=== PATIENT | female | born 1965 | race Caucasian/White ===

== ENCOUNTER 2017-04-17 18:38 | Inpatient (IN) | payer OTHER, MEDICARE ==
[~2017-04-17] VITALS: Ht 162.6 cm; Wt 81.0 kg
[~2017-04-17 18:38] MED LIST: [UNRECOGNIZED DRUG - REMARK]
[2017-04-17 18:43] VITALS: BP 148/89; PULSE 89; RESP 15; TEMP 98.2; O2SAT 98
--- NOTE | 2017-04-17 20:29 | PD ---
HPI Chief Complaint: Musculoskeletal Complaint Time Seen by Provider: 20:27 Travel History International Travel<30 days: No Contact w/Intl Traveler<30days: No Traveled to known affect area: No History of Present Illness HPI Patient comes in complaining of left ankle pain 2 days. Patient describes pain as aching/throbbing like in nature without radiation. Patient taking ibuprofen and resting with little improvement in symptoms. Patient denies any known trauma. Patient states pain is throughout her left ankle. Pain is worse with movement and standing. Denies any numbness or tingling, chest pain, shortness breath, or fevers. PFSH Past Medical History Cancer: Yes (skin) Cardiovascular Problems: Yes (HTN) Diminished Hearing: No Hypertension: Yes Tetanus Vaccination: Unknown Influenza Vaccination: No ?: Not Tubal Ligation: Yes Past Surgical History Other Surgery: Yes (SKIN CX REMOVAL) Social History Alcohol Use: Yes (1/2 pack per day) Tobacco Use: Yes (one pack per day) Substance Use: No Allergies-Medications (Allergen,Severity, Reaction): Coded Allergies: No Known Allergies (Verified , 07/05/15) Reported Meds & Prescriptions Reported Meds & Active Scripts Active Reported [Bp Pill Unknown] Review of Systems Except as stated in HPI: all other systems reviewed are Neg Physical Exam Narrative GENERAL: Well-developed, overly nourished, in no acute distress, and non-ill appearing. SKIN: Focused skin assessment warm and dry. HEAD: Atraumatic. Normocephalic. EYES: Pupils equal and round. EOMI. No scleral icterus. No injection or drainage. ENT: No nasal bleeding or discharge. Mucous membranes pink and moist. NECK: Trachea midline. Supple. No nuclear rigidity. CARDIOVASCULAR: Dorsal pulses 2+, intact, and equal bilaterally. Capillary refill less than 2 seconds. RESPIRATORY: No accessory muscle use. No respiratory distress. MUSCULOSKELETAL: No obvious deformities. No clubbing. No cyanosis. No edema, soft tissue swelling noted left ankle going into the foot. Decreased range of motion left ankle secondary to pain. Ankle: Neagative anterior draw and Mendez test. Negative Kailash's sign. No laxity noted with passive inversion and eversion of BL ankles. Negative squeeze test. Pulses equal BL distal to injury. Capillary refill less than 2 seconds distal to injury and equal BL. Sensation equal BL 1st web space. FROM of toes distal to injury and equal BL. NV intact distal to injury and equal BL. Dorsal pulses equal BL. Patient reports tenderness throughout palpation of left ankle. NEUROLOGICAL: Awake and alert. No obvious cranial nerve deficits. Motor grossly within normal limits. Normal speech. PSYCHIATRIC: Appropriate mood and affect; insight and judgment normal. Data Data Last Documented VS Vital Signs Date Time Temp Pulse Resp B/P Pulse Ox O2 Delivery O2 Flow Rate FiO2 04/17/17 21:20 97 Room Air 04/17/17 20:06 16 04/17/17 18:43 98.2 89 148/89 Orders Ankle, Complete ([id number]) (04/17/17 ) Ice/Cold Pack (04/17/17 20:12) Basic Metabolic Panel (Bmp) (04/17/17 21:02) Complete Blood Count With Diff (04/17/17 21:02) Prothrombin Time / Inr (Pt) (04/17/17 21:02) Act Partial Throm Time (Ptt) (04/17/17 21:02) Iv Access Insert/Monitor (04/17/17 21:02) Ecg Monitoring (04/17/17 21:02) Oximetry (04/17/17 21:02) Sodium Chloride 0.9% Flush (Ns Flush) (04/17/17 21:15) Electrocardiogram (04/17/17 21:02) Chest, Single Ap (04/17/17 21:02) Splint Or Brace Apply/Monitor (04/17/17 21:02) Consult Orthopedic (04/17/17 ) Alcohol (Ethanol) (04/17/17 21:02) Ct Ankle W/O Contrast (04/17/17 ) Admit Order (Ed Use Only) (04/17/17 21:14) Fiberglass Short Leg Splint Ad (04/17/17 ) Fiberglass Sugartong Sp Ad Sl (04/17/17 ) Ice Cuff (04/17/17 ) (Hub Use Only)Inp Phy Cons/Ref (04/17/17 ) MDM Medical Decision Making Medical Screen Exam Complete: Yes Emergency Medical Condition: Yes Interpretation(s) Left ankle x-ray read by the radiologist shows: Bimalleolar fractures with slight disruption of ankle mortise. EKG reviewed by Dr. Doyle. Shows normal sinus rhythm with ventricular rate 92. No STEMI. Differential Diagnosis Fracture, sprain, contusion, other Narrative Course Patient was seen and examined. Radiological studies were obtained and reviewed. Discussed patient with orthopedic on-call patient, once patient admitted for surgery tomorrow. Discussed all findings and plan of care with patient, who is agreeable for admission. All questions were answered. Preoperative test were ordered. Physician Communication Physician Communication 2099 discussed patient with Nigel Go's PA, who recommends ice cough, splint, CT, nothing by mouth after midnight, admit to medicine, and consult Dr. Go for surgery tomorrow. [address] Phan, who is agreeable to the patient. Diagnosis Primary Impression: Bimalleolar fracture of left ankle Qualified Code: S82.842A - Bimalleolar fracture of left ankle, closed, initial encounter Admitting Information Admitting Physician Requests: Admit Condition: Stable Manish Cordero Apr 17, 2017 20:29
--- NOTE | 2017-04-17 20:39 | RADRPT ---
EXAM DATE/TIME: 04/17/2017 20:17 [facility] COMPARISON: No previous studies available for comparison. INDICATIONS : Left ankle pain. MEDICAL HISTORY : None. SURGICAL HISTORY : None. ENCOUNTER: Initial ACUITY: 2 weeks PAIN SCORE: 10/10 LOCATION: Left ankle. FINDINGS: Three view exam was performed of the left ankle. Bimalleolar fracture with disruption of ankle mortis e. Extensive soft tissue swelling. Slight comminution of distal fibular fracture. No radiopaque fore ign bodies are seen. Bony mineralization is normal. CONCLUSION: Bimalleolar fractures with slight disruption of ankle mortise. Anuj Mcgregor MD on April 17, 2017 at 20:37 Board Certified Radiologist. This report was verified electronically.
[2017-04-17] MEDS ORDERED: SODIUM CHLORIDE 0.9% FLUSH 10 ML FLUSH IV FLUSH PRN ×2 (21:15→21:45)
[2017-04-17 21:20] VITALS: O2SAT 97
--- NOTE | 2017-04-17 21:32 | RADRPT ---
EXAM DATE/TIME: 04/17/2017 21:09 [facility] COMPARISON: No previous studies available for comparison. INDICATIONS : Evaluate for pneumonia, pneumothorax and communicable disease. Pre op for Ankle fracture. MEDICAL HISTORY : None. SURGICAL HISTORY : None. ENCOUNTER: Initial ACUITY: 1 day PAIN SCORE: 0/10 LOCATION: Bilateral chest FINDINGS: A single view of the chest demonstrates the lungs to be symmetrically aerated without evidence of mas s, infiltrate or effusion. The cardiomediastinal contours are unremarkable. Osseous structures are intact. Old right-sided rib fractures. CONCLUSION: No acute disease. Anuj Mcgregor MD on April 17, 2017 at 21:30 Board Certified Radiologist. This report was verified electronically.
--- NOTE | 2017-04-17 21:39 | HHI.HP ---
[facility] No Primary Care Physician Admission Diagnosis left bimalleolar ankle fracture, hypertension Diagnoses: (1) Bimalleolar fracture of left ankle Diagnosis: Principal (2) HTN (hypertension) Diagnosis: Principal (3) Alcohol abuse Diagnosis: Principal (4) Tobacco abuse Diagnosis: Principal Travel History International Travel<30 Days: No Contact w/Intl Traveler <30 Da: No Traveled to Known Affected Are: No History of Present Illness This is a 51-year-old female with a PMH of HTN, Alcohol Abuse and Tobacco Abuse the ER with complaints of left ankle pain x2 days. Denies any recent trauma or injury. Has been taking OTC medications w/ no relief, now having worsening pain w/ ambulation. On arrival, BP 148/89, HR 89, O2 sat 98% on RA, Afebrile. CBC unremarkable. Chemistry essentially unremarkable except for GFR 77. INR 1.0. CXR with no acute findings. Ankle X-ray bimalleolar fractures with slight disruption of ankle mortise. Dr. Go consulted by ER physician, plan is for surgical intervention. Review of Systems Except as stated in HPI: all other systems reviewed are Neg ROS: 14 point review of systems otherwise negative. Past Family Social History Past Medical History PMH: HTN, Alcohol Abuse and Tobacco Abuse Past Surgical History PAST SURGICAL HISTORY: Skin Cancer Removal Allergies: Coded Allergies: No Known Allergies (Verified , 07/05/15) Family History PAST FAMILY HISTORY: Reviewed. No h/o DM or CAD Social History PAST SOCIAL HISTORY: Drinks daily. Smokes 1ppd. Negative for drugs. Physical Exam Vital Signs Vital Signs Date Time Temp Pulse Resp B/P Pulse Ox O2 Delivery O2 Flow Rate FiO2 04/17/17 21:20 97 Room Air 04/17/17 20:06 16 04/17/17 18:43 98.2 89 15 148/89 98 Physical Exam PE: GENERAL: Middle-aged white female in no acute distress. HEENT: PERRLA, EOMI. No scleral icterus or conjunctival pallor. No lid lag or facial droop. CARDIOVASCULAR: Regular rate and rhythm. No obvious murmurs to auscultation. No chest tenderness to palpation. RESPIRATORY: No obvious rhonchi or wheezing. Clear to auscultation. Breath sounds equal bilaterally. GASTROINTESTINAL: Abdomen soft, non-tender, nondistended. BS normal. MUSCULOSKELETAL: Extremities without clubbing, cyanosis, or edema. Left ankle in splint. NEUROLOGICAL: Awake, alert and oriented x4. No focal neurologic deficits. Moving both upper and lower extremities spontaneously. Assessment and Plan Problem List: (1) Bimalleolar fracture of left ankle ICD Code: S82.842A Status: Acute (2) HTN (hypertension) ICD Code: I10 Status: Acute (3) Tobacco abuse ICD Code: Z72.0 Status: Acute (4) Alcohol abuse ICD Code: F10.10 Status: Acute Assessment and Plan A/P: 1. Left Ankle Fx: c/o left ankle pain x2 days, denies injury/trauma. X-ray w / bimalleolar fracture with slight disruption, images reviewed by me. Dr. oG consulted by ER physician, plan is for surgical intervention in am, s/p splint in ER. NPO, IVF, analgesics/antiemetics as needed. 2. HTN: BP 160's, non-compliant w/ meds. BP currently 148/75, HR 81. Will monitor. 3. Alcohol Abuse: Drinks daily. CIWA, Seizure Precautions, MVT/Thiamine/ Folate 4. Tobacco Abuse: Ativan/NicoDerm prn if needed. 5. DVT Prophylaxis: Anticoagulation post-op per Ortho 6. Social work for d/c planning as needed. 7. Case discussed w/ ER physician at length. Physician Certification 2 Midnight Certification Type: Admission for Inpatient Services Order for Inpatient Services The services are ordered in accordance with Medicare regulations or non- Medicare payer requirements, as applicable. In the case of services not specified as inpatient-only, they are appropriately provided as inpatient services in accordance with the 2-midnight benchmark. Estimated LOS (days): 2 days is the estimated time the patient will need to remain in the hospital, assuming treatment plan goals are met and no additional complications. Post-Hospital Plan: Not yet determined Problem Qualifiers (1) Bimalleolar fracture of left ankle: Qualified Code: S82.842A - Bimalleolar fracture of left ankle, closed, initial encounter Olivia Phan MD Apr 17, 2017 21:39
[2017-04-17 21:41] VITALS: BP 148/75; PULSE 81; RESP 16; TEMP 98.5; O2SAT 98
[2017-04-17] MEDS ORDERED: LACTULOSE SYRUP 20 GM/30 ML CUP PO PRN (21:45)
[2017-04-17] MEDS ORDERED: MAGNESIUM HYDROXIDE SUSP 30 ML CUP PO PRN (21:45)
[2017-04-17] MEDS ORDERED: BISACODYL 10 MG SUPP RECTAL PRN (21:45)
[2017-04-17] MEDS ORDERED: ACETAMINOPHEN/HYDROcodone 325 MG/5 MG TAB PO PRN (21:45)
[2017-04-17] MEDS ORDERED: SENNOSIDES 8.6 MG TAB PO PRN (21:45)
[2017-04-17] MEDS ORDERED: MORPHINE SULFATE 4 MG/ML INJ IV PRN (21:45)
[2017-04-17] MEDS ORDERED: ONDANSETRON HCL 4 MG/2 ML VIAL IVP PRN (21:45)
[2017-04-17] MEDS ORDERED: ACETAMINOPHEN 325 MG TAB PO PRN (21:45)
--- NOTE | 2017-04-17 21:49 | RADRPT ---
EXAM DATE/TIME: 04/17/2017 21:19 [facility] COMPARISON: ANKLE LEFT COMPLETE ([id number]), April 17, 2017, 20:17. INDICATIONS : Left ankle and foot pain X 2 weeks. RADIATION DOSE: 9.62 CTDIvol (mGy) MEDICAL HISTORY : Hypertension. Cardiovascular disease SURGICAL HISTORY : Tubal ligation. ENCOUNTER: Initial ACUITY: 2 weeks PAIN SCALE: 7/10 LOCATION: Left ankle TECHNIQUE: Volumetric scanning of the ankle was performed. Using automated exposure control and adjustment of t he mA and/or kV according to patient size, radiation dose was kept as low as reasonably achievable to obtain optimal diagnostic quality images. DICOM format image data is available electronically for review and comparison. FINDINGS: Trimalleolar fracture. The medial malleolus fracture is mildly displaced. Minimal posterior malleolus fracture. There is a comminuted fracture distal shaft of the fibula. There is disruption of the ankl e mortise with the talus and fibula displaced laterally. Subtalar joints are intact. Calcaneus is als o slightly subluxed laterally. CONCLUSION: Trimalleolar fracture with disruption of ankle mortise. Anuj Mcgregor MD on April 17, 2017 at 21:44 Board Certified Radiologist. This report was verified electronically.
[2017-04-17 21:58] LABS: AUTOMATED NEUTROPHIL # 2.2 TH/MM3 (1.8-7.7); BASOPHIL % 0.6 % (0.0-2.0); EOSINOPHIL # 0.1 TH/MM3 (0-0.4); HEMATOCRIT 36.6 % (35.0-46.0); HEMO FLAGS DIFF FINAL; LYMPH % 31.5 % (9.0-44.0); LYMPHOCYTE # 1.3 TH/MM3 (1.0-4.8); MEAN CELL VOLUME 98.2 FL (80.0-100.0); MEAN CORPUSCULAR HEMOGLOBIN 32.3 PG (27.0-34.0); MEAN CORPUSCULAR HGB CONC 32.9 % (32.0-36.0); MONO % 10.2 % (0.0-8.0); NEUT % 55.7 % (16.0-70.0); PLATELET COUNT 229 TH/MM3 (150-450); RED BLOOD COUNT 3.73 MIL/MM3 (4.00-5.30)
[2017-04-17 22:01] LABS: APTT (PATIENT) 26.8 SEC (24.3-30.1); PROTHROMBIN TIME - PATIENT 10.6 SEC (9.8-11.6)
[2017-04-17] MEDS: SODIUM CHLOR 0.9% 1000 ML INJ 1,000 ML IV SCH (22:09)
[2017-04-17 23:00] VITALS: BP 160/93; PULSE 94; RESP 18; TEMP 98.2; O2SAT 96
[2017-04-17 23:01] LABS: BICARBONATE 23.3 MEQ/L (21.0-32.0); POTASSIUM 3.7 MEQ/L (3.5-5.1)
[2017-04-18] MEDS ORDERED: LORazepam 2 MG TAB PO PRN (00:30)
[2017-04-18] MEDS ORDERED: FLUMAZENIL 0.5 MG/5 ML VIAL IV PUSH PRN (00:30)
[2017-04-18] MEDS ORDERED: LORazepam 1 MG TAB PO PRN (00:30)
[2017-04-18] MEDS ORDERED: LORazepam 2 MG/ML VIAL IV PUSH PRN ×4 (00:30)
[2017-04-18] MEDS ORDERED: HALOPERIDOL LACTATE 5 MG/ML AMP IM PRN (00:30)
[2017-04-18 03:25] VITALS: BP 153/95; PULSE 90; RESP 18; TEMP 98.5; O2SAT 95
[2017-04-18] MEDS ORDERED: LOVA20TA PO (04:08)
[2017-04-18] MEDS ORDERED: LISI-515 PO (04:14)
[2017-04-18] MEDS ORDERED: IBUP-232 PO (04:17)
[2017-04-18] MEDS ORDERED: CHLORHEXIDINE GLUCONATE 2 % 1 PACK (2 CLOTHS) TOPICAL PRN (05:30)
[2017-04-18] MEDS ORDERED: METOPROLOL TARTRATE 25 MG TAB PO PRN (05:30)
[2017-04-18] MEDS ORDERED: SODIUM CHLORID 0.9% 500 ML IV PRN (05:30)
[2017-04-18] MEDS ORDERED: POVIDONE IODINE 5% (ANTISEPSIS KIT) 4 APPLICATIONS EACH NARE PRN (05:30)
[2017-04-18] MEDS ORDERED: INSULIN HUMAN REGULAR 1,000 UNITS/10 ML VIAL SQ PRN (05:30)
[2017-04-18] MEDS ORDERED: LACTATED RINGER'S 1000 ML IV PRN (05:30)
[2017-04-18] MEDS ORDERED: ENALAPRILAT 1.25 MG/ML VIAL IV PRN (06:00)
[2017-04-18] MEDS ORDERED: cloNIDine HCL 0.1 MG TAB PO PRN (06:00)
--- NOTE | 2017-04-18 06:49 | PD.ORT.PN ---
Subjective Subjective Remarks Patient awoke yesterday morning with significant pain and to left ankle. She states that she was drinking the night before and does not remember falling or injuring her ankle. She is brought to the emergency room and was diagnosed with trimalleolar ankle fracture. She states that she smokes half-pack cigarettes a day and does not drink every day. Objective Vitals Vital Signs Date Time Temp Pulse Resp B/P Pulse Ox O2 Delivery O2 Flow Rate FiO2 04/18/17 03:25 98.5 90 18 153/95 95 04/17/17 23:00 98.2 94 18 160/93 96 04/17/17 21:41 98.5 81 16 148/75 98 Room Air 2 04/17/17 21:20 97 Room Air 04/17/17 20:06 16 04/17/17 18:43 98.2 89 15 148/89 98 Result Diagram: 04/17/17212904/17/172129 Other Results Laboratory Tests Test 04/17/17 21:30 Prothrombin Time 10.6 SEC (9.8-11.6) Prothromb Time International 1.0 RATIO Ratio Imaging Last 24 hours Impressions Chest X-Ray 04/17/172101 Signed Impressions: Service Date/Time: Monday, April 17, 2017 21:09 - CONCLUSION: No acute disease. Anuj Mcgregor MD Objective Remarks Bilateral upper extremities: Full range of motion neurovascularly intact Right lower extremity: Full range of motion neurovascularly intact Left lower extremity: No pain with hip or knee range of motion. She has short leg splint in place with ice cuff. She has intact sensation in all her toes. She has pain with pressure to her ankle she is good capillary refills Assessment & Plan Assessment and Plan Left trimalleolar ankle fracture Due to displacement of fracture surgical intervention is necessary. We will plan for surgery this morning Nothing by mouth Sign consents We will plan for discharge to home tomorrow if cleared by physical therapy Smoking cessation is discussed and understands it must be ceased completely Follow-up with Dr. Go or PA in 2 weeks Turner El Jr. Apr 18, 2017 06:49
[2017-04-18] MEDS ORDERED: WHEEMIS3 (06:51)
[2017-04-18] MEDS ORDERED: CALCTAB19 PO (06:51)
[2017-04-18] MEDS ORDERED: HYDR-3580 PO (06:51)
[2017-04-18] MEDS ORDERED: ERGO1CAP30 PO (06:51)
[2017-04-18] MEDS ORDERED: WALKER/ADULT/FO1 MIS (06:51)
--- NOTE | 2017-04-18 06:53 | HHI.FF ---
Face to Face Verification Diagnosis: (1) Bimalleolar fracture of left ankle Physical Therapy Gait training, Safety evaluation Left LE Weight Bearing: Non WB S/P Spinal Fusion: Gait training with walker I have seen patient Annetta Genao on 04/18/17. My clinical findings support the need for the requested home health care services because: Limited ability to care for self I certify that my clinical findings support that this patient is homebound because: Post-op weakness Turner El Jr. Apr 18, 2017 06:53
[2017-04-18 07:00] LABS: AUTOMATED NEUTROPHIL # 2.2 TH/MM3 (1.8-7.7); BASOPHIL % 0.6 % (0.0-2.0); EOSINOPHIL # 0.1 TH/MM3 (0-0.4); EOSINOPHIL % 2.9 % (0.0-4.0); HEMATOCRIT 33.2 % (35.0-46.0); HEMO FLAGS DIFF FINAL; LYMPH % 33.8 % (9.0-44.0); LYMPHOCYTE # 1.4 TH/MM3 (1.0-4.8); MEAN CELL VOLUME 98.3 FL (80.0-100.0); MEAN CORPUSCULAR HEMOGLOBIN 32.8 PG (27.0-34.0); MEAN CORPUSCULAR HGB CONC 33.3 % (32.0-36.0); MONO % 11.8 % (0.0-8.0); NEUT % 50.9 % (16.0-70.0); PLATELET COUNT 229 TH/MM3 (150-450); RED BLOOD COUNT 3.37 MIL/MM3 (4.00-5.30); RED CELL DISTRIBUTION WIDTH 14.2 % (11.6-17.2); WHITE BLOOD COUNT 4.3 TH/MM3 (4.0-11.0)
[2017-04-18 07:22] LABS: ALT (GPT) 17 U/L (10-53); ANION GAP 9 MEQ/L (5-15); AST (GOT) 12 U/L (15-37); BICARBONATE 25.2 MEQ/L (21.0-32.0); BLOOD UREA NITROGEN 15 MG/DL (7-18); CHLORIDE 110 MEQ/L (98-107); GLOMERULAR FILTRATION RATE 107 ML/MIN (>89); POTASSIUM 3.4 MEQ/L (3.5-5.1); SODIUM (NA) 144 MEQ/L (136-145)
[2017-04-18 07:25] LABS: ALKALINE PHOSPHATASE 82 U/L (45-117); TOTAL BILIRUBIN ADULT 0.8 MG/DL (0.2-1.0)
[2017-04-18] MEDS: SODIUM CHLOR 0.9% 1000 ML INJ 1,000 ML IV SCH (07:32)
[2017-04-18] MEDS ORDERED: SODIUM CHLOR 0.9% 250 ML INJ 250 ML ONE (07:37)
[2017-04-18] MEDS ORDERED: VANCOMYCIN HCL 1000 MG VIAL ONE (07:37)
[2017-04-18] MEDS ORDERED: GENTAMICIN SULFATE 80 MG/2 ML VIAL ONE (07:37)
--- NOTE | 2017-04-18 08:34 | MB ---
cc: FATUMA SUAZO CAMILLE MD DATE OF CONSULTATION: 04/17/2017 REASON FOR CONSULTATION Left ankle fractures. CONSULTING PHYSICIAN Dr. Phan. HISTORY Annetta is a 51-year-old female who had been drinking significantly on the night before presentation. She woke up in the morning with severe left ankle pain. She does not recall the injury. She was intoxicated on the night of injury. She was unable to stand or ambulate. She presented to the emergency room where x-rays revealed comminuted left ankle fractures. She is currently awake and alert on the orthopedic floor. Her only complaint currently is her left ankle. Pain is worse with movement and with weightbearing. Pain is improved with rest. PAST MEDICAL HISTORY ILLNESSES: Hypertension, alcohol abuse, tobacco abuse. SURGERIES Skin cancer removal. ALLERGIES None. MEDICATIONS Please see EMR for a complete list of inpatient medications. SOCIAL HISTORY The patient drinks daily. She smokes a pack a day. She denies drug use. REVIEW OF SYSTEMS The patient denies headache, visual changes, neck pain, chest pain, shortness of breath, abdominal pain, nausea, vomiting or recent weight loss. She complains of the left ankle pain. Pain is worse with movement. FAMILY HISTORY Noncontributory. REVIEW OF SYSTEMS The patient denies headache, visual changes, neck pain, chest pain, shortness of breath, abdominal pain, nausea, vomiting or recent weight loss. She complains of left ankle pain. PHYSICAL EXAMINATION The patient is a 51 year-old female who is in no acute distress. She is awake and alert. She appears well-developed, well-nourished. VITAL SIGNS: Temperature 98.5, pulse 90, respiratory rate 18, blood pressure 153/95. O2 sat is 95% on two liters nasal cannula. Head: The patient is normocephalic. Pupils are equal. Neck: Soft, nontender. Trachea midline. Abdomen: Soft, non-tender, non-distended. Extremities: Examination of the bilateral upper extremities reveals no pain with shoulder, elbow, wrist motion. She has intact sensation in all fingers. She has good capillary refill in all fingers. Skin is intact. Battery Service Technician strength is +5. Examination of right leg reveals no pain with hip, knee or ankle motion. Skin is intact. Dorsalis pedis pulses palpable. Sensation is intact. Examination of the left leg reveals no pain with hip or any motion. She is diffusely tender around the ankle. She has good capillary refill of her toes. X-RAYS: X-rays of the left ankle were reviewed. The patient has a comminuted trimalleolar ankle fracture. IMPRESSION: Comminuted left ankle trimalleolar fracture. Tobacco dependence. Alcohol abuse. PLAN: Treatment options were discussed with the patient. At this point I have discussed open reduction, internal fixation versus possible external fixation. Risks of surgery include bleeding, infection, injury to arteries, nerves, or blood vessels, nonunion, malunion, wound infection, wound complications as well as medical complications including blood clot, stroke, heart attack and . All questions were answered. I explained to her that if her swelling is too much today, then she may need staged surgery with external fixation today and open reduction, internal fixation at a later date. All questions were answered. I will plan on surgery today. A mid-level provider in my office, nurse practitioner or PA, may see this patient on a follow-up basis and continue to implement the objective of this plan including: Starting or adjusting medications, injections of muscle, tendon, bursa or joints, cast application, orthotic or brace application, physical therapy, further radiographic studies including x-ray, MRI, CT, ultrasounds or bone scan, vascular studies, neurologic studies, or other specialist consultations, and proceeding with surgical management as appropriate. MD JATINDER Chew/KIAH /6:58 AM /8:26 AM
[2017-04-18] MEDS ORDERED: ceFAZolin INJ 1,000 MG VIAL IV ONE (08:40)
[2017-04-18] MEDS: DOCUSATE SODIUM 50 MG/SENNA 8.6 MG TAB PO SCH ×2 (09:00→20:21)
[2017-04-18] MEDS: SODIUM CHLORIDE 0.9% FLUSH 10 ML FLUSH IV FLUSH SCH ×2 (09:00→20:21)
[2017-04-18] MEDS: MULTIVITAMINS/MINERALS THERAPEUTIC TAB PO SCH (09:00)
[2017-04-18] MEDS: THIAMINE HCL 100 MG TAB PO SCH (09:00)
[2017-04-18] MEDS: FOLIC ACID 1 MG TAB PO SCH (09:00)
--- NOTE | 2017-04-18 09:58 | PD.OP ---
cc: Bryce Go MD Operative Report Date of Surgery: Apr 18, 2017 Preoperative Diagnosis: Comminuted displaced left ankle trimalleolar fracture Postoperative Diagnosis: Procedure: Open reduction internal fixation left trimalleolar ankle fracture, open reduction total fixation left ankle syndesmosis Surgeon: Bryce Go Fabric Worker Foreman(s): MARYBEL Sunshine PA-C The surgical procedure was assisted by my physician elementary assistant principal. My P.A. presence was necessary throughout this case for the manipulation and positioning of the surgical extremity. My P.A. was assisting me throughout the duration of this procedure. The skill set of a physician elementary assistant principal was medically necessary to complete this procedure. During the surgical case the surgical services tech was working at the back table and the physician elementary assistant principal was directly assisting me. Operation and Findings: Patient was seen and evaluated preoperatively and found to have a left displaced ankle fracture. Informed consent was obtained after a detailed discussion of risk and benefits of surgery. The operative site was marked. Patient was brought to the OR, placed on the OR table, and given IV sedation and general endotracheal anesthesia. IV antibiotics were given preoperatively. A timeout procedure was performed. The left leg was prepped with alcohol followed by Hibiclens and draped in the usual sterile fashion. A 5-inch incision was made over the distal fibula. The subcutaneous tissue was dissected with Bovie. The fracture site was visualized. Attention was turned towards the distal tibia. There was a fracture of the anterior distal tibia. Fracture was cleaned with curettes. Fracture was now reduced. K wires were used to hold provisional fixation. Multiplanar fluoroscopy confirmed excellent alignment of fracture. An ITS plate was selected and contoured to fit the anterolateral distal tibia. Plate was provisionally held the bone with K wires. A 3.5 cortical screws were used to compress plate to bone. Additional 2.4 screws were placed above and below fracture. Fluoroscopy confirmed well aligned hardware with well reduced fracture. Next attention was turned to the fibula. The fracture site was cleaned with curets. The fracture was now reduced. Fracture was comminuted. The fracture keyed into anatomic alignment. K-wires were used to h old provisional fixation. A ITS plate was selected. The plate was provisionally held to bone with K- wires. 3.5 cortical screws were used to compress the plate to bone. Multiple screws were placed above and below the fracture. Fluoroscopy confirmed excellent alignment of fracture with well-placed hardware. Next attention was turned towards the medial malleolus. The medial malleolus supposed through a 3 cm incision. Saphenous vein was retracted. Fracture was visualized. Fracture was cleaned with curettes. Fracture was now reduced and keyed into anatomic alignment. K wires were used to hold provisional fixation. 2 guide pins for the 4.0 cannulated screws were placed in a retrograde fashion across the fracture. Fluoroscopy was used to confirm guidepin placement. Cannulated drill was placed over the guidepin. 2 appropriate length screws were now placed. Good compression was applied. Fluoroscopy confirmed well aligned fracture with well-placed hardware. Next, attention was turned to the syndesmosis. The syndesmosis was stressed. There was clear widening of the syndesmosis with external rotation of the ankle. The syndesmosis was now held in a reduced position with the ankle in neutral position. Two ITS 3.5 cortical screws were now placed through the fibula plate into the tibia. Fluoroscopy confirmed appropriate screw placement with well-aligned syndesmosis. Incisions were thoroughly irrigated. The subcutaneous tissue was closed with 3-0 vicryl and the skin was closed with 3-0 nylon. Sterile dressings were applied. A well molded well-padded splint was applied. The patient was transferred to Recovery in stable condition. Needle and sponge counts were correct. Bryce Go MD Apr 18, 2017 09:58
[2017-04-18] MEDS ORDERED: MORPHINE SULFATE 4 MG/ML INJ IV PUSH PRN (10:00)
[2017-04-18] MEDS ORDERED: ERGOCALCIFEROL (VIT D2) 50,000 UNIT CAP PO SCH (10:00)
[2017-04-18] MEDS ORDERED: Post-op Orders (for Pharmacy) MISC XX ONE (10:00)
[2017-04-18] MEDS ORDERED: DO NOT ADM ANY ANTICOAGULANT DRUGS PRN (10:12)
[2017-04-18] MEDS ORDERED: MIDAZOLAM HCL 2 MG/2 ML VIAL ONE (10:21)
[2017-04-18] MEDS ORDERED: MORPHINE SULFATE 4 MG/ML INJ ONE (10:22)
[2017-04-18] MEDS ORDERED: *morphine SULFATE 8 MG/ML PERIprocedure ONLY ONE (10:34)
[2017-04-18] MEDS ORDERED: POTASSIUM CHLORIDE 10 MEQ CONTROLLED RELEASE TAB PO ONE (10:45)
[2017-04-18] MEDS: ACETAMINOPHEN/HYDROcodone 325 MG/7.5 MG TAB PO PRN ×3 (11:41→20:22)
[2017-04-18] MEDS: LISINOPRIL 20 MG TAB PO SCH (11:43)
[2017-04-18] MEDS: PRAVASTATIN SOD 20 MG TAB PO SCH (11:44)
[2017-04-18 12:00] VITALS: BP 153/94; PULSE 72; RESP 19; TEMP 96; O2SAT 100
[2017-04-18] MEDS ORDERED: ONDANSETRON HCL 4 MG/2 ML VIAL IV PUSH ONE (12:00)
[2017-04-18] MEDS ORDERED: PROPOFOL 200 MG/20 ML AMP IV ONE (12:00)
[2017-04-18] MEDS ORDERED: LACTATED RINGER'S 1000 ML INJ 1,000 ML IV ONE (12:00)
[2017-04-18] MEDS ORDERED: ePHEDrine/NS 25 MG/5 ML SYR IV ONE (12:00)
--- NOTE | 2017-04-18 12:02 | HHI.PR ---
Subjective Remarks Follow-up left ankle injury. States she is sore. Tolerated surgery. Patient has abnormal EKG showing T changes in V1 to V3 she denies chest pain and shortness of breath. Doesn't remember having a formal cardiac workup no history of ID or coronary artery disease. Discussed with RN Objective Vitals Vital Signs Date Time Temp Pulse Resp B/P Pulse Ox O2 Delivery O2 Flow Rate FiO2 04/18/17 10:45 72 16 140/73 99 Nasal Cannula 2 04/18/17 10:30 80 16 145/71 99 Nasal Cannula 2 04/18/17 10:16 97.6 90 16 127/78 99 Nasal Cannula 2 04/18/17 03:25 98.5 90 18 153/95 95 04/17/17 23:00 98.2 94 18 160/93 96 04/17/17 21:41 98.5 81 16 148/75 98 Room Air 2 04/17/17 21:20 97 Room Air 04/17/17 20:06 16 04/17/17 18:43 98.2 89 15 148/89 98 I/O 04/17/17 04/17/17 04/17/17 04/18/17 04/18/17 04/18/17 07:00 15:00 23:00 07:00 15:00 23:00 Intake Total 886 ml Balance 886 ml Intake Oral 0 ml IV Total 886 ml # Voids 4 # Bowel Movements 0 Result Diagram: 04/18/17 0635 04/18/17 0635 Imaging Last Impressions Chest X-Ray 04/17/172101 Signed Impressions: Service Date/Time: Monday, April 17, 2017 21:09 - CONCLUSION: No acute disease. Anuj Mcgregor MD Lower Extremity CT 04/17/17 0000 Signed Impressions: Service Date/Time: Monday, April 17, 2017 21:19 - CONCLUSION: Trimalleolar fracture with disruption of ankle mortise. Anuj Mcgregor MD Ankle X-Ray 04/17/17 0000 Signed Impressions: Service Date/Time: Monday, April 17, 2017 20:17 - CONCLUSION: Bimalleolar fractures with slight disruption of ankle mortise. Anuj Mcgregor MD Objective Remarks Well-developed, well-nourished in no distress on nasal cannula Equal breath sounds clear to auscultation Regular rate and rhythm no murmur Abdomen soft and slightly distended nontender Extremities left lower extremity with bulky dry dressing Alert and oriented Procedures Open reduction internal fixation left trimalleolar ankle fracture, open reduction total fixation left ankle syndesmosis A/P Problem List: (1) Bimalleolar fracture of left ankle ICD Code: S82.842A Status: Acute (2) HTN (hypertension) ICD Code: I10 Status: Acute (3) Tobacco abuse ICD Code: Z72.0 Status: Acute (4) Alcohol abuse ICD Code: F10.10 Status: Acute Assessment and Plan Left Ankle Fx status post repair. Stable continue postoperative care with physical therapy, wound care, incentive spirometry, DVT prophylaxis and pain management with Lortab and IV morphine. HTN: Stable expected BP fluctuations from pain. Continue lisinopril with as needed antihypertensives will monitor Hypokalemia. We will replace. Repeat BMP and mag in the morning Abnormal EKG. Patient denies chest pain. Likely related to electrolyte abnormality. We'll monitor Alcohol Abuse: Drinks daily. CIWA, Seizure Precautions, MVT/Thiamine/Folate. Consult Tobacco Abuse: Ativan/NicoDerm prn if needed. DVT Prophylaxis: Anticoagulation post-op per Ortho Discharge Planning I spent 35 minutes [id number] with the patient or on the lion discussing the patient's disposition, prognosis, and plan of care with patient's caregivers. Over half the time spent was devoted to counseling the patient regarding care with caregivers Problem Qualifiers (1) Bimalleolar fracture of left ankle: Qualified Code: S82.842A - Bimalleolar fracture of left ankle, closed, initial encounter Sagar Contreras MD Apr 18, 2017 12:02
[2017-04-18 16:00] VITALS: BP 89/73; PULSE 68; RESP 18; TEMP 96; O2SAT 91
[2017-04-18] MEDS ORDERED: ceFAZolin 2 GM PREMIX 50 ML IV SCH (17:00)
--- NOTE | 2017-04-18 18:30 | EKG ---
Date Performed: 04/17/2017 Time Performed: 21:15:02 PTAGE: 51 years EKG: Sinus rhythm POSSIBLE LEFT ATRIAL ENLARGEMENT MODERATE T-WAVE ABNORMALITY, CONSIDER ANTERIOR ISCHEMIA ABNORMAL EC G PREVIOUS TRACING : 08/12/2010 17.48 Compared to prior tracing no significant change DOCTOR: Paco Biswas Interpretating Date/Time 04/18/2017 18:28:13
[2017-04-18 20:00] VITALS: BP 133/81; PULSE 71; RESP 18; TEMP 97.1; O2SAT 95
[2017-04-18] MEDS: CALCIUM/VITAMIN D 250 MG/125 U TAB PO SCH (20:21)
[2017-04-18 22:11] VITALS: O2SAT 96
[2017-04-19 00:33] VITALS: BP 113/67; PULSE 69; RESP 18; TEMP 97.1; O2SAT 97
[2017-04-19] MEDS: ACETAMINOPHEN/HYDROcodone 325 MG/7.5 MG TAB PO PRN ×3 (02:15→21:54)
[2017-04-19 04:39] VITALS: BP 120/71; PULSE 82; RESP 19; TEMP 96.7; O2SAT 97
--- NOTE | 2017-04-19 07:11 | PD.ORT.PN ---
Subjective Subjective Remarks Pain controlled and doing well. No new complaints Objective Vitals Vital Signs Date Time Temp Pulse Resp B/P Pulse Ox O2 Delivery O2 Flow Rate FiO2 04/19/17 00:33 97.1 69 18 113/67 97 04/18/17 22:11 96 04/18/17 20:00 97.1 71 18 133/81 95 04/18/17 18:37 16 04/18/17 16:00 96.0 68 18 89/73 91 04/18/17 12:00 96.0 72 19 153/94 100 04/18/17 10:45 72 16 140/73 99 Nasal Cannula 2 04/18/17 10:30 80 16 145/71 99 Nasal Cannula 2 04/18/17 10:16 97.6 90 16 127/78 99 Nasal Cannula 2 I/O 04/18/17 04/18/17 04/18/17 04/19/17 04/19/17 04/19/17 07:00 15:00 23:00 07:00 15:00 23:00 Intake Total 886 ml 480 ml 480 ml Balance 886 ml 480 ml 480 ml Intake Oral 0 ml 480 ml 480 ml IV Total 886 ml # Voids 4 1 6 # Bowel Movements 0 0 0 Result Diagram: 04/18/17 0635 04/18/17 0635 Imaging Last 24 hours Impressions Chest X-Ray 04/17/172101 Signed Impressions: Service Date/Time: Monday, April 17, 2017 21:09 - CONCLUSION: No acute disease. Anuj Mcgregor MD Objective Remarks Bilateral upper extremities: Full range of motion neurovascularly intact Right lower extremity: Full range of motion neurovascularly intact Left lower extremity: No pain with hip or knee range of motion. She has short leg splint in place that is clean and dry. She has intact sensation in all her toes. She has good capillary refills Assessment & Plan Assessment and Plan Left trimalleolar ankle fracture ORIF POD 1 Nonweightbearing left lower extremity Maintain splint elevation We'll plan on discharge tomorrow to home if safe Smoking cessation is discussed and understands it must be ceased completely Follow-up with Dr. Go or PA in 2 weeks Turner El Jr. Apr 19, 2017 07:11
[2017-04-19 07:20] LABS: AUTOMATED NEUTROPHIL # 5.5 TH/MM3 (1.8-7.7); BASOPHIL % 0.1 % (0.0-2.0); HEMATOCRIT 28.9 % (35.0-46.0); HEMO FLAGS DIFF FINAL; LYMPH % 13.1 % (9.0-44.0); LYMPHOCYTE # 0.9 TH/MM3 (1.0-4.8); MEAN CELL VOLUME 97.8 FL (80.0-100.0); MEAN CORPUSCULAR HEMOGLOBIN 33.4 PG (27.0-34.0); MEAN CORPUSCULAR HGB CONC 34.2 % (32.0-36.0); MONO % 9.7 % (0.0-8.0); NEUT % 77.1 % (16.0-70.0); PLATELET COUNT 209 TH/MM3 (150-450); RED BLOOD COUNT 2.96 MIL/MM3 (4.00-5.30); RED CELL DISTRIBUTION WIDTH 13.8 % (11.6-17.2); WHITE BLOOD COUNT 7.1 TH/MM3 (4.0-11.0)
[2017-04-19 07:46] LABS: BICARBONATE 24.5 MEQ/L (21.0-32.0); MAGNESIUM 2.1 MG/DL (1.5-2.5); POTASSIUM 4.1 MEQ/L (3.5-5.1)
[2017-04-19 07:55] VITALS: BP 147/85; PULSE 83; RESP 20; TEMP 97.6; O2SAT 99
[2017-04-19] MEDS: SODIUM CHLORIDE 0.9% FLUSH 10 ML FLUSH IV FLUSH SCH ×2 (09:00→21:56)
[2017-04-19] MEDS: THIAMINE HCL 100 MG TAB PO SCH (09:14)
[2017-04-19] MEDS: CHOLECALCIFEROL (VIT D3) 1000 UNIT TAB PO SCH (09:14)
[2017-04-19] MEDS: CALCIUM/VITAMIN D 250 MG/125 U TAB PO SCH ×2 (09:14→21:52)
[2017-04-19] MEDS: MULTIVITAMINS/MINERALS THERAPEUTIC TAB PO SCH (09:14)
[2017-04-19] MEDS: DOCUSATE SODIUM 50 MG/SENNA 8.6 MG TAB PO SCH ×2 (09:14→21:52)
[2017-04-19] MEDS: PRAVASTATIN SOD 20 MG TAB PO SCH (09:14)
[2017-04-19] MEDS: LISINOPRIL 20 MG TAB PO SCH (09:14)
[2017-04-19] MEDS: FOLIC ACID 1 MG TAB PO SCH (09:14)
[2017-04-19 11:00] VITALS: BP 96/65; PULSE 91; RESP 20; TEMP 98.2; O2SAT 96
--- NOTE | 2017-04-19 14:00 | RADRPT ---
EXAM DATE/TIME: 04/18/2017 09:38 [facility] COMPARISON: No previous studies available for comparison. INDICATIONS : Left ankle ORIF. MEDICAL HISTORY : None. SURGICAL HISTORY : None. ENCOUNTER: Initial ACUITY: 1 day PAIN SCORE: Non-responsive. LOCATION: Left ankle. FINDINGS: Extensive hardware is noted throughout the distal fibula and tibia status post ORIF. CONCLUSION: 1. Status post ORIF of left distal fibula and tibia fractures with hardware in good position. Sunil Moore MD on April 19, 2017 at 13:33 Board Certified Radiologist. This report was verified electronically.
--- NOTE | 2017-04-19 14:01 | HHI.PR ---
Subjective Remarks Follow-up orthopedic injury. She is doing well out of bed to chair. Still no BM but passing gas. Per orthopedic surgery possible discharge in the morning. Discussed with RN Objective Vitals Vital Signs Date Time Temp Pulse Resp B/P Pulse Ox O2 Delivery O2 Flow Rate FiO2 04/19/17 11:00 98.2 91 20 96/65 96 04/19/17 07:55 97.6 83 20 147/85 99 04/19/17 04:39 96.7 82 19 120/71 97 04/19/17 00:33 97.1 69 18 113/67 97 04/18/17 22:11 96 04/18/17 20:00 97.1 71 18 133/81 95 04/18/17 18:37 16 04/18/17 16:00 96.0 68 18 89/73 91 I/O 04/18/17 04/18/17 04/18/17 04/19/17 04/19/17 04/19/17 07:00 15:00 23:00 07:00 15:00 23:00 Intake Total 886 ml 480 ml 480 ml 360 ml Balance 886 ml 480 ml 480 ml 360 ml Intake Oral 0 ml 480 ml 480 ml 360 ml IV Total 886 ml # Voids 4 1 6 5 # Bowel Movements 0 0 0 0 Result Diagram: 04/19/1716 04/19/17615 Objective Remarks Well-developed, well-nourished in no distress Pupils equally reactive to light no jaundice Equal breath sounds clear to auscultation Regular rate and rhythm no murmur Abdomen soft and slightly distended nontender Extremities left lower extremity with bulky dry dressing Alert and oriented, nonfocal moving all extremities No significant change in PE from previous Procedures Open reduction internal fixation left trimalleolar ankle fracture, open reduction total fixation left ankle syndesmosis A/P Problem List: (1) Bimalleolar fracture of left ankle ICD Code: S82.842A Status: Acute (2) HTN (hypertension) ICD Code: I10 Status: Acute (3) Tobacco abuse ICD Code: Z72.0 Status: Acute (4) Alcohol abuse ICD Code: F10.10 Status: Acute Assessment and Plan Left Ankle Fx status post repair. Stable continue postoperative care with physical therapy, wound care, incentive spirometry, DVT prophylaxis and pain management with Lortab and IV morphine. HTN: Stable will anticipate BP fluctuations from pain as well as from narcotic. Continue lisinopril with as needed antihypertensives will monitor Hypokalemia. Improved Mild hyperglycemia. Obtain A1c Postoperative anemia secondary to acute blood loss from surgery. No active bleeding. We'll monitor repeat CBC in the morning Abnormal EKG. Patient denies chest pain. Likely related to electrolyte abnormality. We'll monitor Alcohol Abuse: Drinks daily. CIWA, Seizure Precautions, MVT/Thiamine/Folate. Counseled Tobacco Abuse: Ativan/NicoDerm prn if needed. DVT Prophylaxis: Anticoagulation post-op per Ortho Discharge Planning I spent 35 minutes [id number] with the patient or on the lion discussing the patient's disposition, prognosis, and plan of care with patient's caregivers. Over half the time spent was devoted to counseling the patient regarding care with caregivers Problem Qualifiers (1) Bimalleolar fracture of left ankle: Qualified Code: S82.842A - Bimalleolar fracture of left ankle, closed, initial encounter Sagar Contreras MD Apr 19, 2017 14:01
[2017-04-19] MEDS ORDERED: SENN1TAB PO (14:12)
[2017-04-19] MEDS ORDERED: GNP100TA3 PO (14:12)
[2017-04-19 16:00] VITALS: BP 119/69; PULSE 87; RESP 20; TEMP 98.3; O2SAT 98
[2017-04-19 18:42] LABS: HEMOGLOBIN A1a 1.2 %; HEMOGLOBIN A1b 0.8 %; HEMOGLOBIN Ao 85.8 %; HEMOGLOBIN F 0.8 %; HEMOGLOBIN P3 3.5 %
[2017-04-19 19:00] VITALS: BP 131/85; PULSE 100; RESP 16; TEMP 99.1; O2SAT 97
[2017-04-20 00:03] VITALS: O2SAT 97
[2017-04-20 00:50] VITALS: BP 127/84; PULSE 84; RESP 17; TEMP 98.5; O2SAT 94
[2017-04-20 04:45] VITALS: BP 157/87; PULSE 89; RESP 17; TEMP 97.7; O2SAT 95
--- NOTE | 2017-04-20 06:34 | PD.ORT.PN ---
Subjective Subjective Remarks POD 2 s/p ORIF left ankle doing well. out of bed with walker. no comlpaints. Objective Vitals Vital Signs Date Time Temp Pulse Resp B/P Pulse Ox O2 Delivery O2 Flow Rate FiO2 04/20/17 00:50 98.5 84 17 127/84 94 04/20/17 00:03 97 04/19/17 19:00 99.1 100 16 131/85 97 04/19/17 16:00 98.3 87 20 119/69 98 04/19/17 11:00 98.2 91 20 96/65 96 04/19/17 07:55 97.6 83 20 147/85 99 I/O 04/19/17 04/19/17 04/19/17 04/20/17 04/20/17 04/20/17 07:00 15:00 23:00 07:00 15:00 23:00 Intake Total 360 ml 480 ml 480 ml 240 ml Balance 360 ml 480 ml 480 ml 240 ml Intake Oral 360 ml 480 ml 480 ml 240 ml # Voids 5 4 3 2 # Bowel Movements 0 0 0 0 Result Diagram: 04/19/1716 04/19/17615 Imaging Last 24 hours Impressions Chest X-Ray 04/17/172101 Signed Impressions: Service Date/Time: Monday, April 17, 2017 21:09 - CONCLUSION: No acute disease. Anuj Mcgregor MD Objective Remarks Bilateral upper extremities: Full range of motion neurovascularly intact Right lower extremity: Full range of motion neurovascularly intact Left lower extremity: No pain with hip or knee range of motion. She has short leg splint in place that is clean and dry. She has intact sensation in all her toes. She has good capillary refills Assessment & Plan Assessment and Plan 1) Left trimalleolar ankle fracture ORIF POD 2 Nonweightbearing left lower extremity Maintain splint elevation We'll plan on discharge today with [facility] Smoking cessation is discussed and understands it must be ceased completely discussed alcohol consumption with patient and advised to cut back on intake so as not to re-injure ankle Follow-up with Dr. Go or [place] in 2 weeks Gato Garcia Apr 20, 2017 06:34
[2017-04-20 07:19] LABS: AUTOMATED NEUTROPHIL # 2.5 TH/MM3 (1.8-7.7); BASOPHIL % 0.2 % (0.0-2.0); HEMATOCRIT 29.7 % (35.0-46.0); HEMO FLAGS DIFF FINAL; LYMPH % 37.3 % (9.0-44.0); LYMPHOCYTE # 1.8 TH/MM3 (1.0-4.8); MEAN CELL VOLUME 98.5 FL (80.0-100.0); MEAN CORPUSCULAR HEMOGLOBIN 33.2 PG (27.0-34.0); MEAN CORPUSCULAR HGB CONC 33.8 % (32.0-36.0); MONO % 11.6 % (0.0-8.0); NEUT % 49.9 % (16.0-70.0); PLATELET COUNT 197 TH/MM3 (150-450); RED BLOOD COUNT 3.01 MIL/MM3 (4.00-5.30); WHITE BLOOD COUNT 4.9 TH/MM3 (4.0-11.0)
[2017-04-20 07:45] LABS: BICARBONATE 28.6 MEQ/L (21.0-32.0); POTASSIUM 3.4 MEQ/L (3.5-5.1)
[2017-04-20 08:00] VITALS: BP 159/84; PULSE 100; RESP 18; TEMP 99.1; O2SAT 92
[2017-04-20] MEDS: SODIUM CHLORIDE 0.9% FLUSH 10 ML FLUSH IV FLUSH SCH (09:00)
[2017-04-20] MEDS ORDERED: POTASSIUM CHLORIDE 10 MEQ CONTROLLED RELEASE TAB PO ONE (09:00)
[2017-04-20] MEDS: LISINOPRIL 20 MG TAB PO SCH (09:23)
[2017-04-20] MEDS: THIAMINE HCL 100 MG TAB PO SCH (09:23)
[2017-04-20] MEDS: PRAVASTATIN SOD 20 MG TAB PO SCH (09:23)
[2017-04-20] MEDS: MULTIVITAMINS/MINERALS THERAPEUTIC TAB PO SCH (09:23)
[2017-04-20] MEDS: DOCUSATE SODIUM 50 MG/SENNA 8.6 MG TAB PO SCH (09:23)
[2017-04-20] MEDS: CHOLECALCIFEROL (VIT D3) 1000 UNIT TAB PO SCH (09:23)
[2017-04-20] MEDS: FOLIC ACID 1 MG TAB PO SCH (09:23)
[2017-04-20] MEDS: CALCIUM/VITAMIN D 250 MG/125 U TAB PO SCH (09:23)
[2017-04-20] MEDS: ACETAMINOPHEN/HYDROcodone 325 MG/7.5 MG TAB PO PRN (09:24)
--- NOTE | 2017-04-20 11:18 | HHI.DS ---
Discharge Summary Admission Date Apr 17, 2017 at 21:16 Discharge Date: Apr 20, 2017 Admitting Diagnosis left bimalleolar ankle fracture, hypertension (1) Bimalleolar fracture of left ankle ICD Code: S82.842A Diagnosis: Principal (2) HTN (hypertension) ICD Code: I10 Diagnosis: Principal (3) Tobacco abuse ICD Code: Z72.0 Diagnosis: Principal (4) Alcohol abuse ICD Code: F10.10 Procedures Open reduction internal fixation left trimalleolar ankle fracture, open reduction total fixation left ankle syndesmosis Brief History - From Admission This is a 51-year-old female with a PMH of HTN, Alcohol Abuse and Tobacco Abuse the ER with complaints of left ankle pain x2 days. Denies any recent trauma or injury. Has been taking OTC medications w/ no relief, now having worsening pain w/ ambulation. On arrival, BP 148/89, HR 89, O2 sat 98% on RA, Afebrile. CBC unremarkable. Chemistry essentially unremarkable except for GFR 77. INR 1.0. CXR with no acute findings. Ankle X-ray bimalleolar fractures with slight disruption of ankle mortise. Dr. Biggs consulted by ER physician, plan is for surgical intervention. CBC/BMP: 04/20/17 0621 04/20/17 0621 Significant Findings Laboratory Tests Test 04/17/17 04/18/17 04/19/17 04/20/17 21:30 06:35 06:16 06:21 Red Blood Count 3.73 MIL/MM3 3.37 MIL/MM3 2.96 MIL/MM3 3.01 MIL/MM3 (4.00-5.30) (4.00-5.30) (4.00-5.30) (4.00-5.30) Monocytes (%) (Auto) 10.2 % 11.8 % 9.7 % (0.0-8.0) 11.6 % (0.0-8.0) (0.0-8.0) (0.0-8.0) Chloride Level 108 MEQ/L 110 MEQ/L (98-107) (98-107) Estimat Glomerular Filtration 77 ML/MIN (>89) 84 ML/MIN (>89) Rate Ethyl Alcohol Level 76 MG/DL (0-5) Hemoglobin 11.1 GM/DL 9.9 GM/DL 10.0 GM/DL (11.6-15.3) (11.6-15.3) (11.6-15.3) Hematocrit 33.2 % 28.9 % 29.7 % (35.0-46.0) (35.0-46.0) (35.0-46.0) Potassium Level 3.4 MEQ/L 3.4 MEQ/L (3.5-5.1) (3.5-5.1) Calcium Level 8.4 MG/DL (8.5-10.1) Aspartate Amino Transf 12 U/L (15-37) (AST/SGOT) Albumin 3.1 GM/DL (3.4-5.0) Neutrophils (%) (Auto) 77.1 % (16.0-70.0) Lymphocytes # (Auto) 0.9 TH/MM3 (1.0-4.8) Blood Urea Nitrogen 19 MG/DL (7-18) 19 MG/DL (7-18) Random Glucose 107 MG/DL (74-106) Imaging Last Impressions Ankle X-Ray 04/18/17 0000 Signed Impressions: Service Date/Time: Tuesday, April 18, 2017 09:38 - CONCLUSION: 1. Status post ORIF of left distal fibula and tibia fractures with hardware in good position. Sunil Moore MD Chest X-Ray 04/17/172101 Signed Impressions: Service Date/Time: Monday, April 17, 2017 21:09 - CONCLUSION: No acute disease. Anuj Mcgregor MD Lower Extremity CT 04/17/17 0000 Signed Impressions: Service Date/Time: Monday, April 17, 2017 21:19 - CONCLUSION: Trimalleolar fracture with disruption of ankle mortise. Anuj Mcgregor MD PE at Discharge Well-developed, well-nourished in no distress Pupils equally reactive to light no jaundice Equal breath sounds clear to auscultation Regular rate and rhythm no murmur Abdomen soft and slightly distended nontender Extremities left lower extremity with bulky dry dressing Alert and oriented, nonfocal moving all extremities No significant change in PE from previous Hospital Course Left Ankle Fx status post repair. Stable continue postoperative care with physical therapy, wound care, incentive spirometry, DVT prophylaxis and pain management with Lortab and IV morphine. HTN: Stable will anticipate BP fluctuations from pain as well as from narcotic. Continue lisinopril with as needed antihypertensives will monitor Hypokalemia. Improved Mild hyperglycemia. A1c 5.2 Postoperative anemia secondary to acute blood loss from surgery. No active bleeding. Stable Abnormal EKG. Patient denies chest pain. Likely related to electrolyte abnormality. We'll monitor Alcohol Abuse: Drinks daily. CIWA, Seizure Precautions, MVT/Thiamine/Folate. Counseled Tobacco Abuse: Ativan/NicoDerm prn if needed. DVT Prophylaxis: Anticoagulation post-op per Ortho. SCD and early ambulate Pt Condition on Discharge: Stable Discharge Disposition: Disch w/ Home Health Serv Discharge Time: > 30 minutes Discharge Instructions DIET: Follow Instructions for: As Tolerated, No Restrictions, Heart Healthy Diet Activities you can perform: Regular-No Restrictions Activities to Avoid: Driving Other Activity Instructions: Weightbearing status of injured extremity per orthopedic surgery Follow up Referrals: Orthopedics - 05/02/17 @ [facility] with Bryce Biggs MD PCP Follow-up - 2-3 Days New Medications: Calcium Carbonate-Vitamin D (Calcium 600+D 200) 600-200 Mg-Unit Tab 1 TAB PO BID Nutritional Supplement #90 Ref 0 TAB Ergocalciferol (Ergocalciferol) 50,000 Unit Cap 78785 UNITS PO Q7D Nutritional Supplement #8 CAP Hydrocodone-Acetaminophen (Hydrocodone-Acetaminophen) 7.5-325 mg Tab 1 TAB PO Q4H PRN PAIN #60 Ref 0 TAB Walker/Adult/Folding (Walker/Adult/Folding) 1 Mis Mis 1 EA .ROUTE DIRECTED #1 Ref 0 EA Wheelchair Elevated Leg (Wheelchair Elevated Leg) 1 Mis Mis 1 EA .ROUTE DIRECTED #1 Ref 0 EA Sennosides-Docusate Sodium (Senna Plus 8.6-50 mg) 1 Tab Tab 1 TAB PO BID Prevent Constipation #60 TAB Thiamine HCl (Gnp Vitamin B-1) 100 Mg Tab 100 MG PO DAILY Alcohol Detox #30 TAB Continued Medications: Lisinopril (Lisinopril) 20 Mg Tab 20 MG PO DAILY 1 TAB EVERY DAY #30 Ref 0 TAB Lovastatin (Lovastatin) 20 Mg Tab 20 MG PO DAILY 1 TAB EVERY DAY Cholesterol Management #30 Ref 0 TAB ([Bp Pill Unknown]) Discontinued Medications: Ibuprofen (Ibuprofen) 600 Mg Tab 600 MG PO Q6H 1TAB EVERY 6 HRS NEEDED FOR PAIN PRN PAIN Ref 0 TAB Sagar Contreras MD Apr 20, 2017 11:18
[2017-04-20 12:00] VITALS: BP 134/81; PULSE 87; RESP 18; TEMP 97.6; O2SAT 94
== END 2017-04-20 14:56 | disposition home health service (06) | DRG 493 ==
LOC: HOR 18:38 → NEDA 21:16 → N06B 22:43
PROVIDERS: ADMIT Internal Medicine; ATTEND Internal Medicine
PROC: 0QSK04Z Reposition Left Fibula with Internal Fixation Device, Open Approach (ICD-10-PCS; 2017-04-18)
PROC: 0SSG04Z Reposition Left Ankle Joint with Internal Fixation Device, Open Approach (ICD-10-PCS; 2017-04-18)
PROC: 0QSH04Z Reposition Left Tibia with Internal Fixation Device, Open Approach (ICD-10-PCS; principal; 2017-04-18 08:30)
DX: S82.852A Displaced trimalleolar fracture of left lower leg, initial encounter for closed fracture (principal); D62 Acute posthemorrhagic anemia; I10 Essential (primary) hypertension; F17.210 Nicotine dependence, cigarettes, uncomplicated; F10.10 Alcohol abuse, uncomplicated; S93.432A Sprain of tibiofibular ligament of left ankle, initial encounter; R94.31 Abnormal electrocardiogram [ECG] [EKG]; E87.6 Hypokalemia; R73.9 Hyperglycemia, unspecified; Z91.14 Patient's other noncompliance with medication regimen; Z85.828 Personal history of other malignant neoplasm of skin
CPT/HCPCS: 71010; 73600; 73610; 73700; 76000; 80048; 80053; 80307; 82948; 83036; 83735; 85025; 85610; 85730; 93005; C1713; J0690; J1580; J2250; J2270; J2405; J3010; J3370; J7030; J7050; J7120